=== PATIENT | female | born 1980 | race Caucasian/White ===

== ENCOUNTER → 2019-12-16 07:28 | Outpatient (CLI) | payer OTHER, SELFPAY ==
--- NOTE | ~2019-12-16 | US_ITS ---
US abdomen complete EXAMINATION: US Abdomen Complete INDICATION: Epigastric pain PROCEDURE: Realtime High Resolution abdomen ultrasound. COMPARISON: No prior studies for comparison FINDINGS: Gallbladder within normal limits. No gallstones, pericholecystic fluid, gallbladder wall t hickening or biliary dilatation. Common bile duct measures 2.3 mm. Liver echotexture within normal limits without focal mass. Pancreas within normal limits. Pancreati c tail is obscured by bowel gas. Spleen is unremarkeable. Renal echotexture is within normal limits bilaterally without hydronephrosis, contour deforming mass or renal stone. Right kidney measures 10.6 cm. Left kidney measures 9.1 cm. Visualized aspects of the aorta and IVC are within normal limits. Portal vein is patent. No sonograph ic Yeager's sign indicated by the technologist. IMPRESSION: 1: Normal abdominal ultrasound. Reviewed, dictated and finalized at location I.
== END ==
PROVIDERS: PCP Student in an Organized Health Care Education/Training Program; Visit Provider Student in an Organized Health Care Education/Training Program
DX: R10.13 Epigastric pain (principal)
CPT/HCPCS: 76700

== ENCOUNTER 2020-05-11 09:08 | Emergency (ER) | payer OTHER, SELFPAY ==
[2020-05-11 09:10] VITALS: BP 114/76; PULSE 64; RESP 16; TEMP 36.2; O2SAT 100
--- NOTE | 2020-05-11 10:18 | ED.BACK ---
HPI - Back Pain/Injury General Chief Complaint: Back Pain/Injury Stated Complaint: SCIATICA PAIN Time Seen by Provider: 05/11/20 09:24 Source: patient Mode of arrival: ambulatory Limitations: no limitations History of Present Illness HPI Narrative: Patient is a 39-year-old female who presents complaining of lower back pain x2 days. She reports a history of sciatica. She reports pain radiating down bilateral legs at this time. She denies urinary complaints. She denies loss of bowel or bladder control, she denies injury. She reports intermittently taking ibuprofen without relief, last use of ibuprofen was yesterday. MD elicited complaint: back pain Related Data Home Medications Medication Instructions Recorded Confirmed escitalopram oxalate mg 05/11/20 Allergies Allergy/AdvReac Type Severity Reaction Status Date / Time No Known Allergies Allergy Verified 05/11/20 09:53 Review of Systems Review of Systems: Narrative: CONSTITUTIONAL: Denies fever, chills, or sweats. EYES: Denies visual changes, redness, or discharge. ENT: Denies rhinorrhea, congestion, sore throat, or otalgia. CARDIOVASCULAR: Denies chest pain, palpitations, or edema. RESPIRATORY: Denies cough or dyspnea. GASTROINTESTINAL: Denies abdominal pain, nausea, vomiting, or diarrhea. GENITOURINARY: Denies dysuria or hematuria. SKIN: Denies rash or itching. MUSCULOSKELETAL: Reports lower back pain radiating to bilateral legs NEUROLOGIC: Denies headache, numbness, dizziness, or weakness. PSYCHIATRIC: Denies anxiety or depression. 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 HEAD: Normocephalic, atraumatic. EYES:No redness or drainage. ENT: Mucous membranes pink and moist. CHEST: No respiratory distress. HEART: Regular rate and rhythm. MUSCULOSKELETAL: No bony tenderness. EXTREMITIES: Normal range of motion. SKIN: Warm, dry, no rash. NEURO: No focal deficits. Alert and oriented x3. Gait steady. PSYCH: Normal affect. No signs of depression or anxiety. Course Reevaluation(s) Reevaluation #1: Patient reports decreased pain at this time. She reports she is ready for discharge. Date: 05/11/20 Time: 12:19 Vital Signs Vital signs: Vital Signs Temperature 36.2 C L 05/11/20 09:10 Pulse Rate 64 05/11/20 09:10 Respiratory Rate 16 05/11/20 09:10 Blood Pressure 114/76 05/11/20 09:10 Pulse Oximetry 100 05/11/20 09:10 Temperature 36.2 C L 05/11/20 09:10 Pulse Rate 64 05/11/20 09:10 Respiratory Rate 16 05/11/20 09:10 Blood Pressure 114/76 05/11/20 09:10 Pulse Oximetry 100 05/11/20 09:10 Reviewed MDM - Back Pain/Injury MDM Narrative Medical decision making narrative: Patient most likely has sciatica related to her symptoms and her history. Patient reports decreased pain after Toradol and Flexeril. Patient is ambulatory and ready for discharge at this time. Patient is stable for discharge to home with outpatient follow-up as needed. Differential Diagnosis Differential diagnosis: Likely lumbar radiculopathy, sciatica, strain of lumbar region and discitis Lab Data Attestation: I reviewed the patient's lab results. Labs: Lab Results 05/11/20 Range/Units 11:48 Urine Color Yellow (Yellow) Urine Appearance
[2020-05-11] MEDS: CYCLOBENZAPRINE HCL 10 MG TABLET PO (10:36)
[2020-05-11] MEDS: KETOROLAC (*BKC) 60 MG/2 ML VIAL IM (10:37)
[2020-05-11 12:05] LABS: Add Urine Microscopic? YES; Appearance Urine Clear (Clear); Bacteria Urine Trace /hpf; Bilirubin Urine Negative (Negative); Blood Urine 2+ (Negative); Color Urine Yellow (Yellow); Glucose Urine UA Negative (Negative); Ketones Urine Negative (Negative); Leukocyte Esterase Ur Negative LEU/UL (Negative); Mucus Urine Heavy /lpf; Nitrate Urine Negative (Negative); Protein Urine 1+ mg/dL (Negative); Specific Grav Ur 1.029 (1.001-1.035); Squamous Epithelial Cell Urine Few /hpf (Few); WBC Urine 0-3 /hpf
[2020-05-11 12:33] VITALS: BP 116/80; PULSE 63; RESP 18; O2SAT 98
== END 2020-05-11 12:40 | disposition home or self-care (01) ==
PROVIDERS: Emergency Provider Nurse Practitioner; PCP Student in an Organized Health Care Education/Training Program
DX: M54.42 Lumbago with sciatica, left side (principal); M54.41 Lumbago with sciatica, right side; M54.16 Radiculopathy, lumbar region; F32.9 Major depressive disorder, single episode, unspecified; F41.9 Anxiety disorder, unspecified
CPT/HCPCS: 81001; 81025; 96372; 99283; A9270; J1885

== ENCOUNTER → 2022-01-08 10:11 | Outpatient (CLI) | payer OTHER, SELFPAY ==
--- NOTE | ~2022-01-08 | CT_ITS ---
EXAMINATION: CT abdomen pelvis w con DATE: 01/08/2022 10:33 INDICATION: Epigastric abdominal pain, nausea TECHNIQUE: Computed tomography (CT) of the abdomen and pelvis was performed with 100 CC Omnipaque 350 intravenous contrast. Automated exposure control and iterative reconstruction technique were employe d. Exam dose: 557.49 mGy-cm total exam DLP. COMPARISON: 12/16/2019 complete abdominal ultrasound examination FINDINGS: The lung bases are clear of infiltrate or consolidation. Normal heart size. No pericardial or pleural effusion. The liver, gallbladder, bile ducts, spleen, pancreas, pancreatic duct, and adrenal glands and kidneys appear normal. Normal caliber of the abdominal aorta. No intraperitoneal or retroperitoneal or pelvic mass lesion or adenopathy or ascites. Normal appendix. There is a prominent of fecal material in the colon. No bowel obstruction, bowel wal l thickening, pneumatosis or intraperitoneal free air is detected. Retroverted uterus. 14 mm left ovarian cyst. The urinary bladder is unremarkable. Severe degenerative disc disease at L4-5. No suspicious osteolytic or osteoblastic lesions. IMPRESSION: Normal appendix Retroverted uterus 14 mm left ovarian cyst Severe degenerative disease at L4-5 Reviewed, dictated and finalized at Location A. Reviewed, dictated and finalized at location B.
== END ==
PROVIDERS: PCP Student in an Organized Health Care Education/Training Program; Visit Provider Student in an Organized Health Care Education/Training Program
DX: R10.13 Epigastric pain (principal); N83.202 Unspecified ovarian cyst, left side; M51.36 Other intervertebral disc degeneration, lumbar region
CPT/HCPCS: 74177; Q9967

== ENCOUNTER 2022-03-04 01:24 | Day surgery (SDC) | payer OTHER, SELFPAY ==
[2022-02-17 13:48] VITALS: BMI 24.5
[2022-03-04 12:00] VITALS: BP 110/73; PULSE 58; RESP 18; TEMP 36.3; O2SAT 98
[2022-03-04] MEDS: LACTATED RINGERS 1,000 ML 150 ML IV CONT (12:09)
--- NOTE | 2022-03-04 12:17 | WPDANESEPPF ---
Anes - Initial Pre Proc Eval Procedure: Operation Date: 03/04/22 13:15 Proposed Procedures p Esophagogastroduodenoscopy EGD - Grant Martinez MD Date/Time: 03/04/22 12:17 Surgeon: Grant Martinez MD Pre Op Diagnosis: nausea, epigastric pain Patient Data Age: 41 Gender: F Height: 1.7 m Weight: 70.9 kg Last Vital Signs Temp 97.3 F L 03/04/22 12:00 Pulse 58 L 03/04/22 12:00 Resp 18 03/04/22 12:00 BP 110/73 03/04/22 12:00 Pulse Ox 98 03/04/22 12:00 O2 Del Method Room Air 03/04/22 12:00 Allergies Allergy/AdvReac Type Severity Reaction Status Date / Time No Known Allergies Allergy Verified 03/04/22 11:59 Home Medications Medication Instructions Recorded Confirmed Type escitalopram oxalate 20 mg tablet 30 mg PO DAILY 05/11/20 02/17/22 History L.acidoph, paracasei,B. lactis 10 1 cell PO DAILY 01/29/22 02/17/22 History billion cell capsule (Digestive Advantage Advanced Probiotic) multivitamin 1 tablet PO DAILY 01/29/22 02/17/22 History omega 1-vwa-vwu-fish oil 100 2 cap PO BID 01/29/22 02/17/22 History mg-160 mg-1,000 mg capsule (Fish Oil) pantoprazole 40 mg tablet,delayed 40 mg PO QAM 01/29/22 02/17/22 History release cholecalciferol (vitamin D3) 125 125 mcg PO DAILY 02/17/22 02/17/22 History mcg (5,000 unit) tablet (Vitamin D3) Patient hx anesthesia problems: none Family hx anesthesia problems: none Results Review: All pre-operative results and documents have been reviewed as part of the pre-operative evaluation. 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 Informed Consent: The patient's anesthetic plan and its attendant risks and benefits were discussed with the patient/family/POA. Questions were solicited and answers provided to the satisfaction of the patient/family/POA.
--- NOTE | 2022-03-04 13:07 | PM.HPGS ---
History of Present Illness History of Present Illness Consent: Risks, benefits, and alternatives have been discussed and questions answered. Patient agrees to proceed with procedure. Chief complaint: nausea, epigastric pain Narrative: Pat Meneses is a 41 year old female with epigastric pain and nausea better since using protonix, never had egd Review of Systems Constitutional: Constitutional: Denies headache(s) and Denies weakness Eyes: Eyes: Denies blurry vision ENT: Reports Normal hearing present, Denies headache(s) and Denies neck pain Cardiovascular: Cardiovascular: Denies chest pain and Denies dyspnea Respiratory: Respiratory: Denies dyspnea Gastrointestinal: Gastrointestinal: Reports no additional gastrointestinal complaints Genitourinary: Genitourinary: Denies dysuria Musculoskeletal: Musculoskeletal: Denies neck pain Integumentary/Breasts: Skin/Breast: Denies dry skin Neurologic: Reports Normal hearing present, Denies headache(s) and Denies weakness Psychiatric: Psychiatric: Denies anxiety Endocrine: Endocrine: Denies change in body appearance Hematologic/Lymphatic: Hematologic/Lymphatic: Denies easy bleeding Allergic/Immunologic: Allergic/Immunologic: Denies urticaria [facility] Past Medical History Medical History (Updated 01/29/22 @ 09:37 by Grant Martinez MD) Anxiety Depression Epigastric pain Nausea Rash Sciatica Surgical History Surgical History H/O tubal ligation Family History Family History Other No significant family history Social History Social History Years smoked: 20 Smoking status: Former smoker Additional smoking assessment comments: smoked socially Alcohol intake: never Substance use: never Substance use type: does not use Living arrangements: other Additional living arrangements comments: with sp 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 lactis 10 1 cell PO DAILY 01/29/22 02/17/22 History billion cell capsule (Digestive Advantage Advanced Probiotic) multivitamin 1 tablet PO DAILY 01/29/22 02/17/22 History omega 1-mhd-izf-fish oil 100 2 cap PO BID 01/29/22 02/17/22 History mg-160 mg-1,000 mg capsule (Fish Oil) pantoprazole 40 mg tablet,delayed 40 mg PO QAM 01/29/22 02/17/22 History release cholecalciferol (vitamin D3) 125 125 mcg PO DAILY 02/17/22 02/17/22 History mcg (5,000 unit) tablet (Vitamin D3) Allergies Allergy/AdvReac Type Severity Reaction Status Date / Time No Known Allergies Allergy Verified 03/04/22 11:59 Vital Signs Vital Signs - 24 hr 03/04/22 12:00 Temperature 97.3 F L Pulse Rate 58 L Respiratory Rate 18 Blood Pressure 110/73 Pulse Oximetry 98 Oxygen Delivery Room Air Exam Const: General: comfortable and no acute distress HENMT: Face/Nose/Sinus: Normal nares present Eyes: General: appearance normal, both eyes and all related structures Neck: Neck: no JVD Resp: Auscultation: clear to auscultation bilaterally Cardio: Rate: regular rate Rhythm: regular rhythm GI: Inspection: non-distended GI Palp: Yes Soft to palpation Skin: General skin exam: normal color Neuro: General: gait normal Speech: normal speech Extrem: General: normal to inspection Psych: Mental Status: mental status grossly normal Assessment and Plan Assessment and plan (1) Epigastric pain: Code(s): R10.13 - Epigastric pain Status: Acute Assessment and Plan: egd with bx better with ppi (2) Nausea: Code(s): R11.0 - Nausea Status: Acute
[2022-03-04 13:24] VITALS: BP 106/66; PULSE 69; RESP 19; O2SAT 98
[2022-03-04 13:34] VITALS: BP 112/58; PULSE 67; RESP 16; O2SAT 99
[2022-03-04 13:44] VITALS: BP 110/79; PULSE 62; RESP 18; O2SAT 100
== END 2022-03-04 13:49 | disposition home or self-care (01) ==
PROVIDERS: PCP Student in an Organized Health Care Education/Training Program; Visit Provider Internal Medicine Gastroenterology
PROC: 0DJ08ZZ Inspection of Upper Intestinal Tract, Via Natural or Artificial Opening Endoscopic (ICD-10-PCS; CPT 43235; principal; 2022-03-04 13:15)
DX: K21.9 Gastro-esophageal reflux disease without esophagitis (principal); K29.70 Gastritis, unspecified, without bleeding; F41.9 Anxiety disorder, unspecified; F32.A Depression, unspecified; Z87.891 Personal history of nicotine dependence
CPT/HCPCS: 43239; 88305; J2405; J2704; J3010; J7120

== ENCOUNTER 2022-03-24 21:51 | Emergency (ER) | payer OTHER, SELFPAY ==
[2022-03-24 22:15] VITALS: BP 106/66; PULSE 100; RESP 14; TEMP 37.1; O2SAT 100
[2022-03-24 22:30] LABS: Basophils Percent Auto 0.2 % (0.2-1.2); Eosinophils Absolute Auto 0.1 K/mm3 (0-0.3); Eosinophils Percent Auto 0.7 % (0-4.4); Hematocrit 44.8 % (37.0-47.0); Hemoglobin 14.8 g/dL (12.0-15.0); Immature Granulocyte Absolute 0.07 K/mm3 (0.00-0.031); Immature Granulocyte Percent A 0.6 % (0-0.5); Lymphocytes Absolute Auto 0.36 K/mm3 (0.9-3.2); Mean Corpuscular Hemoglobin 30.9 pg (26-34); Mean Corpuscular Volume 93.5 fl (80-100); Mean Platelet Volume 10.4 fl (7.4-10.4); Monocytes Absolute Auto 0.5 K/mm3 (0.1-0.6); Monocytes Percent Auto 4.1 % (2.6-8.5); Neutrophils Absolute Auto 10.9 K/mm3 (1.3-6.7); Neutrophils Percent Auto 91.4 % (45.5-73.1); Platelet Count Result 242 k/mm3 (150-375); Red Blood Count 4.79 M/mm3 (4.2-5.4); Red Cell Distribution Width 12.8 % (11.5-14.5); White Blood Count 11.9 K/mm3 (4.5-10.0)
[2022-03-24 22:41] LABS: Alanine Aminotransferase 20 U/L (6-35); Albumin Level 4.6 g/dL (3.5-5.1); Alkaline Phosphatase 56 U/L (38-126); Anion Gap 15 mmol/L (8-16); Aspartate Amino Transferase 19 U/L (14-36); Bilirubin,Total 1.6 mg/dL (0.2-1.3); Blood Urea Nitrogen 23 mg/dL (7-17); Calcium 8.6 mg/dL (8.4-10.2); Carbon Dioxide 22 mmol/L (22-30); Chloride 104 mmol/L (98-107); Estimated CRCL calculation 71 ml/min; Estimated Glomerular Filt Rate > 60; Glucose 104 mg/dL (65-110); Lipase 154 U/L (23-300); Potassium 4.1 mmol/L (3.4-5.0); Sodium 141 mmol/L (137-145)
[2022-03-24 23:48] LABS: Appearance Urine Clear (Clear); Bilirubin Urine 1+ (Negative); Blood Urine Negative (Negative); Color Urine Yellow (Yellow); Glucose Urine UA Negative (Negative); Ketones Urine 4+ mg/dL (Negative); Leukocyte Esterase Ur Negative LEU/UL (Negative); Nitrate Urine Negative (Negative); Protein Urine Negative (Negative); Specific Grav Ur 1.015 (1.001-1.035)
[2022-03-24 23:51] LABS: Bacteria Urine Trace /hpf; Mucus Urine Rare /lpf; Squamous Epithelial Cell Urine Rare /hpf (Few); WBC Urine 0-3 /hpf
[2022-03-24 23:52] LABS: Add Urine Microscopic? YES
[2022-03-25] MEDS: diphenhydrAMINE HCl INJ 50 MG/ML VIAL 25 MG IV PUSH (00:21)
[2022-03-25] MEDS: SODIUM CHLORIDE 0.9% IV 1,000 ML 999 ML IV CONT ×2 (00:21→01:24)
[2022-03-25] MEDS: METOCLOPRAMIDE HCL INJ 10 MG/2 ML VIAL IV PUSH (00:22)
--- NOTE | 2022-03-25 00:55 | ED.NAVMDI ---
HPI - Nausea/Vomiting/Diarrhea General Chief complaint: Nausea/Vomiting/Diarrhea Stated complaint: N/V Time Seen by Provider: 03/24/22 23:27 History of Present Illness HPI Narrative: 41-year-old female history of IBS who is under the care of Dr. Xavier Young presents to the emergency room for evaluation of nausea vomiting and diarrhea since 4:00 today. Patient states that she has vomited 25 times nonbilious nonbloody emesis since the onset and has had 5 episodes of diarrhea. Patient took her son Rupali and 1 dose of an antidiarrheal prior to arrival. Patient states her called Dr. Xavier Young and was told to come straight to the emergency room for evaluation and treatment. Patient also admits to abdominal cramping. Denies fevers. Related Data Home Medications Medication Instructions Recorded Confirmed escitalopram oxalate 20 mg tablet 30 mg PO DAILY 05/11/20 02/17/22 L.acidoph, paracasei,B. lactis 10 1 cell PO DAILY 01/29/22 02/17/22 billion cell capsule (Digestive Advantage Advanced Probiotic) multivitamin 1 tablet PO DAILY 01/29/22 02/17/22 omega 0-trq-tko-fish oil 100 2 cap PO BID 01/29/22 02/17/22 mg-160 mg-1,000 mg capsule (Fish Oil) pantoprazole 40 mg tablet,delayed 40 mg PO QAM 01/29/22 02/17/22 release cholecalciferol (vitamin D3) 125 125 mcg PO DAILY 02/17/22 02/17/22 mcg (5,000 unit) tablet (Vitamin D3) Allergies Allergy/AdvReac Type Severity Reaction Status Date / Time No Known Allergies Allergy Verified 03/04/22 11:59 Review of Systems Review of Systems: CONSTITUTIONAL: Denies fever, chills, or sweats. EYES: Denies visual changes, redness, or discharge. ENT: Denies rhinorrhea, congestion, sore throat, or otalgia. CARDIOVASCULAR: Denies chest pain, palpitations, or edema. RESPIRATORY: Denies cough or dyspnea. GASTROINTESTINAL: Reports abdominal cramping, nausea, vomiting and diarrhea GENITOURINARY: Denies dysuria or hematuria. SKIN: Denies rash or itching. MUSCULOSKELETAL: Denies back pain, joint pain, or myalgia. NEUROLOGIC: Denies headache, numbness, dizziness, or weakness. PSYCHIATRIC: Denies anxiety or depression. 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 HEAD: Normocephalic, atraumatic. EYES: Conjunctivae normal, PERRLA and EOMI. CHEST: Clear to auscultation. No respiratory distress. No wheezes rales or rhonchi. HEART: Regular rate and rhythm. No murmur heard. Normal peripheral pulses. ABDOMEN: Soft, nontender, nondistended, normal active bowel sounds. BACK: No CVA tenderness EXTREMITIES: Normal range of motion. No edema. No clubbing or cyanosis SKIN: Warm, dry, no rash. No noted wounds NEURO: No focal deficits. Alert and oriented x3. MAEW. CN's II-XI intact bilaterally, normal gait PSYCH: Cooperative. Normal mood and affect. Course Vital Signs Vital signs: Vital Signs Temperature 37.1 C 03/24/22 22:15 Pulse Rate 100 03/24/22 22:15 Respiratory Rate 14 03/24/22 22:15 Blood Pressure 106/66 03/24/22 22:15 Pulse Oximetry 100 03/24/22 22:15 Oxygen Delivery Room Air 03/24/22 22:15 Temperature 37.1 C
[2022-03-25 01:06] LABS: Urine Pregnancy Test Negative
[2022-03-25 01:07] LABS: Pregnancy On Board Control Positive
[2022-03-25 01:49] LABS: Lactic Acid Reflex 0.8 mmol/L (0.7-2.0)
== END 2022-03-25 02:10 | disposition home or self-care (01) ==
PROVIDERS: Emergency Medicine; Emergency Provider Nurse Practitioner Family; PCP Student in an Organized Health Care Education/Training Program
DX: K52.9 Noninfective gastroenteritis and colitis, unspecified (principal); F41.9 Anxiety disorder, unspecified; F32.A Depression, unspecified; Z87.891 Personal history of nicotine dependence
CPT/HCPCS: 36415; 80053; 81001; 81025; 83605; 83690; 85025; 96361; 96374; 96375; 99284; J1200; J2765; J7030

== ENCOUNTER 2022-04-09 09:47 | Outpatient (CLI) | payer OTHER, SELFPAY ==
--- NOTE | ~2022-04-09 | NM_ITS ---
EXAM: NM gastric emptying study DATE: 04/09/2022 14:16 INDICATION: Nausea. TECHNIQUE: A gastric emptying study was performed using the methodology of Etta PEMBERTON, et al. J Nucl Med 2007; 48:568-572. The patient was given a meal consisting of 2 scrambled eggs labeled with 1.010 mCi Tc-99m sulfur colloid, 2 slices of toast, two packages of jam, and approximately 120 mL of water . Simultaneous anterior and posterior 1-min images of the abdomen were obtained with the patient supi ne at multiple time points over a total period of 4 hours. The geometric mean of anterior and posteri or views was determined, and the percentage retention was calculated for each time point. COMPARISON: CT abdomen and pelvis 01/08/2022 FINDINGS: Gastric retention of the radiotracer-labeled meal was 36%, 23%, and 2% at the 1-hour, 2-ho ur, and 4-hour time points, respectively. With this technique, apparent rapid gastric emptying is sug gested by <30% gastric retention at 1 hour. Delayed gastric emptying is defined by gastric retention of >90% at 1 hour, >60% retention at 2 hours, or >10% retention at 4 hours. IMPRESSION: 1. Normal gastric emptying. Reviewed, dictated and finalized at location A. RIDE ATTENDANT IMPRESSION: 1. Normal gastric emptying.
== END 2022-04-09 09:48 | disposition home or self-care (01) ==
PROVIDERS: PCP Student in an Organized Health Care Education/Training Program; Visit Provider Internal Medicine Gastroenterology
DX: R11.0 Nausea (principal)
CPT/HCPCS: 78264; A9541

== ENCOUNTER 2022-08-08 08:21 | Emergency (ER) | payer OTHER, SELFPAY ==
[2022-08-08] VITALS (13 sets, daily range): BP systolic 102–134; BP diastolic 63–78; PULSE 61–72; RESP 16–23; O2SAT 98–100
--- NOTE | ~2022-08-08 | CT_ITS ---
EXAMINATION: CT abdomen pelvis w con DATE: 08/08/2022 10:24 INDICATION: Abdominal pain. TECHNIQUE: Computed tomography (CT) of the abdomen and pelvis was performed with 100 mL Omnipaque 350 intravenous contrast. Automated exposure control and iterative reconstruction technique were employe d. The dose-length product was 371.42 mGy-cm. COMPARISON: CT abdomen and pelvis 01/08/2022 FINDINGS: The visualized portions of the lung bases demonstrate mild atelectasis. No pleural effusion . The heart size is normal. No pericardial effusion. The liver, gallbladder, spleen, pancreas, adrena l glands, and kidneys are normal. There is a left tubal ligation clip in expected position. The right tubal ligation clip is dislodged, which is chronic. The appendix is normal. There are no dilated loo ps of bowel. There are no pathologically enlarged lymph nodes. There is physiologic fluid in the pelv is. There is severe degenerative disc disease at L4-L5. IMPRESSION: 1. No etiology for the patient's symptoms. Reviewed, dictated and finalized at location A.
--- NOTE | 2022-08-08 08:38 | ED.ABDPAIN ---
HPI - Abdominal Pain General Chief Complaint: Abdominal Pain Stated Complaint: abd pain Time Seen by Provider: 08/08/22 08:23 Source: RN notes reviewed History of Present Illness HPI narrative: Patient presents emergency department from home for abdominal pain. Patient states that she has been having abdominal pain in the epigastric region for the past 1 week. The pain is described as burning in nature and is at times sharp and stabbing and will radiate in the right upper quadrant. States that she has had no fevers or chills she denies any nausea vomiting or diarrhea. Patient states that she does have a history of chronic abdominal pain since 2019 and is followed by Dr[address] Hannah Park. States she has been diagnosed with gastritis and is on Protonix and Bentyl daily which she has been taking. Related Data Home Medications Medication Instructions Recorded Confirmed escitalopram oxalate 20 mg tablet 30 mg PO DAILY 05/11/20 02/17/22 L.acidoph, paracasei,B. lactis 10 1 cell PO DAILY 01/29/22 02/17/22 billion cell capsule (Digestive Advantage Advanced Probiotic) multivitamin 1 tablet PO DAILY 01/29/22 02/17/22 omega 1-itr-wll-fish oil 100 2 cap PO BID 01/29/22 02/17/22 mg-160 mg-1,000 mg capsule (Fish Oil) cholecalciferol (vitamin D3) 125 125 mcg PO DAILY 02/17/22 02/17/22 mcg (5,000 unit) tablet (Vitamin D3) ashwhitneydha root extract 500 mg mg PO 08/08/22 capsule s-adenosylmethionine 400 mg tablet 400 mg PO DAILY 08/08/22 (Galdino-E) Allergies Allergy/AdvReac Type Severity Reaction Status Date / Time No Known Allergies Allergy Verified 08/08/22 09:57 Review of Systems Review of Systems: Gen.: Denies fevers or chills ENT: Denies congestion Respiratory: Denies shortness of breath or cough CV: Denies chest pain or palpitations GI: See HPI denies burning, urgency, frequency or hematuria Musculoskeletal: Denies back pain or muscle pain Neuro: Denies numbness, tingling, weakness or focal weakness Skin: Denies rash Except as documented, all other systems reviewed and negative PMFSH Past Medical History Medical History Anxiety Depression Epigastric pain Nausea Rash Sciatica Surgical History Surgical History H/O tubal ligation Family History Family History Other No significant family history Social History Social History Years smoked: 20 Smoking status: Former smoker Additional smoking assessment comments: smoked socially Alcohol intake: never Substance use: never Substance use type: does not use Living arrangements: other Additional living arrangements comments: with sp Occupation/Education: occupation 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 CARDIOVASCULAR: Regular rate and rhythm without murmurs rubs or gallops. ABDOMINAL: Soft, nondistended, tender palpation epigastric, right upper quadrant and left upper quadrant no tenderness in the right lower quadrant left lower quadrant no rebound or guarding MUSCULOSKELETAl: Moves all extremities. No clubbing, cyanosis or edema. NEURO: Awake and alert. Following commands, speech normal, no focal deficits SKIN:: Warm, dry. No rashes lesions or abrasions PSYCHIATRIC: Normal affect/mood, Course Course Emergency Course: Patient states that they are feeling much better at this time. States abdominal pain has resolved.Discussed with patient results of workup and diagnosis. Discussed need for follow-up with primary care physician, reasons to return to the emergency departme
[2022-08-08 08:55] LABS: Basophils Absolute Auto 0.1 K/mm3 (0.0-0.1); Eosinophils Absolute Auto 0.3 K/mm3 (0-0.3); Eosinophils Percent Auto 4.8 % (0-4.4); Hematocrit 41.9 % (37.0-47.0); Hemoglobin 13.8 g/dL (12.0-15.0); Immature Granulocyte Absolute 0.02 K/mm3 (0.00-0.031); Immature Granulocyte Percent A 0.3 % (0-0.5); Lymphocytes Absolute Auto 2.37 K/mm3 (0.9-3.2); Lymphocytes Percent Auto 33.6 % (18.3-44.2); Mean Corpuscular HGB Conc 32.9 g/dl (32-36); Mean Corpuscular Hemoglobin 30.7 pg (26-34); Mean Corpuscular Volume 93.3 fl (80-100); Mean Platelet Volume 10.9 fl (7.4-10.4); Monocytes Absolute Auto 0.6 K/mm3 (0.1-0.6); Monocytes Percent Auto 7.8 % (2.6-8.5); Neutrophils Absolute Auto 3.7 K/mm3 (1.3-6.7); Neutrophils Percent Auto 52.5 % (45.5-73.1); Platelet Count Result 227 k/mm3 (150-375); Red Blood Count 4.49 M/mm3 (4.2-5.4); Red Cell Distribution Width 12.8 % (11.5-14.5); White Blood Count 7.1 K/mm3 (4.5-10.0)
[2022-08-08 09:08] LABS: Alanine Aminotransferase 14 U/L (6-35); Albumin Level 3.8 g/dL (3.5-5.1); Alkaline Phosphatase 59 U/L (38-126); Anion Gap 3 mmol/L (8-16); Aspartate Amino Transferase 16 U/L (14-36); Bilirubin,Total 1.1 mg/dL (0.2-1.3); Blood Urea Nitrogen 7 mg/dL (7-17); Calcium 8.2 mg/dL (8.4-10.2); Carbon Dioxide 31 mmol/L (22-30); Chloride 104 mmol/L (98-107); Estimated CRCL calculation 79 ml/min; Estimated Glomerular Filt Rate > 60; Glucose 80 mg/dL (65-110); Lipase 51 U/L (23-300); Potassium 3.7 mmol/L (3.4-5.0); Sodium 138 mmol/L (137-145)
[2022-08-08 09:14] LABS: Appearance Urine Clear (Clear); Bilirubin Urine Negative (Negative); Blood Urine Negative (Negative); Color Urine Yellow (Yellow); Glucose Urine UA Negative (Negative); Ketones Urine Negative (Negative); Leukocyte Esterase Ur Negative LEU/UL (Negative); Nitrate Urine Negative (Negative); Protein Urine Negative (Negative); Specific Grav Ur 1.007 (1.001-1.035); Urobilinogen Urine 0.2 mg/dL (<2.0)
[2022-08-08 09:22] LABS: Add Urine Microscopic? NO
== END 2022-08-08 11:50 | disposition home or self-care (01) ==
PROVIDERS: Emergency Provider Emergency Medicine; PCP Student in an Organized Health Care Education/Training Program
DX: R10.13 Epigastric pain (principal); Z87.891 Personal history of nicotine dependence
CPT/HCPCS: 36415; 74177; 80053; 81003; 81025; 83690; 85025; 99284; A9270; Q9967

== ENCOUNTER 2024-02-05 15:05 | Emergency (ER) | payer OTHER, SELFPAY ==
--- NOTE | ~2024-02-05 | XR_ITS ---
XR abdomen obstructive series Ordering provider: Homero Kovacs MD History: . lower ab pain . Comparison: FINDINGS: BOWEL: Fecal material is loaded in the colon which may indicate post ration. Nonobstructive bowel gas pattern. ORGANOMEGALY: None. SIGNIFICANT PATHOLOGIC CALCIFICATIONS: Calcific area is projected over the last segment of the coccyx which may be a stone or in the fecal material. Follow-up advised. OTHER: No free air is seen under the diaphragm. IMPRESSION: NO ACUTE ABDOMINAL FINDINGS. Possible calcific shadow in the area of the urinary bladder. Follow-up advised. Constipation. Reviewed, dictated and finalized at location A.
--- NOTE | ~2024-02-05 | XR_ITS ---
XR chest 2V Ordering provider: Homero Kovacs MD History: 43 years Female with . SOB . Comparison: None. FINDINGS: MEDIASTINUM: The cardiac silhouette is not enlarged. LUNGS: No infiltrates, effusions or pneumothorax. OTHER: No free air under the diaphragm. IMPRESSION: No acute cardiopulmonary pathology. Reviewed, dictated and finalized at location A.
[2024-02-05 15:10] VITALS: BP 105/51; PULSE 73; RESP 18; TEMP 36.4; O2SAT 100
[2024-02-05 16:10] VITALS: BP 118/55; PULSE 76; RESP 16; TEMP 36.8; O2SAT 100
--- NOTE | 2024-02-05 16:18 | ED.GENADULT ---
HPI - General Adult General Chief complaint: Upper Respiratory Infection Stated complaint: LONG COVID FLARE Time Seen by Provider: 02/05/24 16:02 History of Present Illness HPI narrative: 43-year-old female presenting to the emergency department for evaluation for concern of having a long COVID flare up. Patient states she initially had COVID in 2019 then then again on 2021 Patient did have sinus surgery on 01/24 . Patient describes having runny nose, body aches fever and GI symptoms. Patient reports having some lower abdominal pain which she also attributes to her IBS C. Patient has been taking Vicodin and Bentyl for pain control. Related Data Home Medications Medication Instructions Recorded Confirmed escitalopram oxalate 20 mg tablet 30 mg PO DAILY 05/11/20 02/17/22 L.acidoph, paracasei,B. lactis 10 1 cell PO DAILY 01/29/22 02/17/22 billion cell capsule (Digestive Advantage Advanced Probiotic) multivitamin 1 tablet PO DAILY 01/29/22 02/17/22 omega 3-foy-mpz-fish oil 100 2 cap PO BID 01/29/22 02/17/22 mg-160 mg-1,000 mg capsule (Fish Oil) cholecalciferol (vitamin D3) 125 125 mcg PO DAILY 02/17/22 02/17/22 mcg (5,000 unit) tablet (Vitamin D3) ashwagandha root extract 500 mg mg PO 08/08/22 capsule s-adenosylmethionine 400 mg tablet 400 mg PO DAILY 08/08/22 (KEELY-e) Allergies Allergy/AdvReac Type Severity Reaction Status Date / Time No Known Allergies Allergy Verified 08/08/22 09:57 Review of Systems Review of Systems: All systems reviewed & are unremarkable except as noted in HPI and below PMFSH Past Medical History Medical History Anxiety Depression Epigastric pain Nausea Rash Sciatica Surgical History Surgical History H/O tubal ligation Family History Family History Other No significant family history Social History Social History Years smoked: 20 Smoking status: Former smoker Additional smoking assessment comments: smoked socially Alcohol intake: never Substance use: never Substance use type: does not use Living arrangements: other Additional living arrangements comments: with sp Occupation/Education: occupation 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 HEAD: normocephalic, atraumatic. EYES: PERRLA/EOMI, conjunctivae clear. NOSE: Normal no drainage EARS:TMS clear with good light reflex. THROAT: Pharynx clear, no exudate. NECK: Supple. No adenopathy, no masses. RESPIRATORY: Airway patent, respirations nonlabored. Clear to auscultation bilaterally, no rales, rhonchi, wheezing. CARDIOVASCULAR: Regular rate and rhythm without murmurs rubs or gallops. ABDOMINAL: Soft, nontender, nondistended, normal bowel sounds MUSCULOSKELETAL: Moves all extremities. Strength/ROM intact, No edema, No calf tenderness. NEURO: Alert. Cranial nerves II through XII intact. Grossly intact SKIN: Warm, dry. Normal Color Course Vital Signs Vital signs: Vital Signs Temperature 97.6 F 02/05/24 15:10 Pulse Rate 73 02/05/24 15:10 Respiratory Rate 18 02/05/24 15:10 Blood Pressure 105/51 L 02/05/24 15:10 Pulse Oximetry 100 02/05/24 15:10 Oxygen Delivery Room Air 02/05/24 15:10 Temperature 98.2 F 02/05/24 16:10 Pulse Rate 76 02/05/24 16:10 Respiratory Rate 16 02/05/24 16:10 Blood Pressure 118/55 L 02/05/24 16:10 Pulse Oximetry 100 02/05/24 16:10 Oxygen Delivery Room Air 02/05/24 16:05 Medical Decision Making MDM Narrative Medical decision making narrative: 43-year-old female presents emergency department for evaluation for abdominal cramping and viral symptoms. Patient is afebrile with no leukocytosis and a s
[2024-02-05] MEDS: SODIUM CHLORIDE 0.9% IV 1,000 ML 999 ML IV CONT (16:52)
[2024-02-05 16:57] LABS: Basophils Percent Auto 0.7 % (0.2-1.2); Eosinophils Absolute Auto 0.2 K/mm3 (0-0.3); Eosinophils Percent Auto 2.7 % (0-4.4); Hematocrit 43.5 % (37.0-47.0); Hemoglobin 14.3 g/dL (12.0-15.0); Immature Granulocyte Absolute 0.02 K/mm3 (0.00-0.031); Immature Granulocyte Percent A 0.4 % (0-0.5); Lymphocytes Absolute Auto 1.66 K/mm3 (0.9-3.2); Lymphocytes Percent Auto 29.9 % (18.3-44.2); Mean Corpuscular HGB Conc 32.9 g/dl (32-36); Mean Corpuscular Hemoglobin 31.6 pg (26-34); Mean Platelet Volume 10.4 fl (7.4-10.4); Monocytes Absolute Auto 0.6 K/mm3 (0.1-0.6); Monocytes Percent Auto 10.1 % (2.6-8.5); Neutrophils Absolute Auto 3.1 K/mm3 (1.3-6.7); Neutrophils Percent Auto 56.2 % (45.5-73.1); Platelet Count Result 292 k/mm3 (150-375); Red Blood Count 4.53 M/mm3 (4.2-5.4); Red Cell Distribution Width 13.4 % (11.5-14.5); White Blood Count 5.6 K/mm3 (4.5-10.0)
[2024-02-05 17:03] LABS: Add Urine Microscopic? YES; Appearance Urine Clear (Clear); Bacteria Urine Rare /hpf; Bilirubin Urine Negative (Negative); Blood Urine Negative (Negative); Color Urine Yellow (Yellow); Glucose Urine UA Negative (Negative); Ketones Urine Negative (Negative); Leukocyte Esterase Ur Trace LEU/UL (Negative); Nitrate Urine Negative (Negative); Non Pathogenic Casts 0-2; Protein Urine Negative (Negative); RBC Urine 0-2 /hpf (0-2); Specific Grav Ur 1.019 (1.001-1.035); Squamous Epithelial Cell Urine None Seen /hpf (Few); Urobilinogen Urine 0.2 mg/dL (<2.0); WBC Urine 0-5 /hpf (0-3)
[2024-02-05 17:06] LABS: Lactic Acid Reflex 0.8 mmol/L (0.7-2.0)
[2024-02-05 17:07] LABS: Alanine Aminotransferase 31 U/L (6-35); Albumin Level 4.1 g/dL (3.5-5.1); Alkaline Phosphatase 77 U/L (38-126); Anion Gap 5 mmol/L (4-12); Aspartate Amino Transferase 29 U/L (14-36); Bilirubin,Total 0.6 mg/dL (0.2-1.3); Blood Urea Nitrogen 25 mg/dL (7-17); Calcium 8.5 mg/dL (8.4-10.2); Carbon Dioxide 31 mmol/L (22-30); Chloride 101 mmol/L (98-107); Estimated CRCL calculation 88 ml/min; Estimated Glomerular Filt Rate > 60; Glucose 91 mg/dL (65-110); Lipase 98 U/L (23-300); Potassium 4.2 mmol/L (3.4-5.0); Prothrombin Time 13.7 Seconds (11.1-14.7); Sodium 137 mmol/L (137-145)
[2024-02-05 17:08] LABS: Partial Thromboplastin Time 39.6 Seconds (22.3-36.8)
[2024-02-05 17:35] LABS: Influenza A QL RT-PCR Negative (Negative); Influenza B QL RT-PCR Negative (Negative); RSV RNA, RT-PCR Negative (Negative); SARS-CoV-2 RNA PCR Negative (Negative)
[2024-02-05] MEDS: KETOROLAC 15 MG/ML VIAL (*BKC) IV PUSH (19:20)
[2024-02-07 14:27] LABS: BEDSIDEPREGUCG Negative (Negative)
== END 2024-02-05 19:21 | disposition home or self-care (01) ==
PROVIDERS: Emergency Provider Emergency Medicine; PCP Student in an Organized Health Care Education/Training Program
DX: B34.9 Viral infection, unspecified (principal); R10.30 Lower abdominal pain, unspecified; Z20.822 Contact with and (suspected) exposure to COVID-19; K58.1 Irritable bowel syndrome with constipation; F41.9 Anxiety disorder, unspecified; F32.A Depression, unspecified; Z86.16 Personal history of COVID-19; Z87.891 Personal history of nicotine dependence; Z79.899 Other long term (current) drug therapy
CPT/HCPCS: 36415; 71046; 74019; 80053; 81001; 81025; 83605; 83690; 85025; 85610; 85730; 87637; 96361; 96374; 99284; J1885; J7030

== ENCOUNTER 2024-02-28 12:42 | Emergency (ER) | payer OTHER, SELFPAY ==
[2024-02-28 12:49] VITALS: BP 119/87; PULSE 82; RESP 20; TEMP 36.4; O2SAT 100
[2024-02-28 13:25] VITALS: BP 110/50; PULSE 66; RESP 14; TEMP 36.6; O2SAT 100
[2024-02-28 13:26] VITALS: BP 110/50; BP 116/70; PULSE 66; PULSE 79
[2024-02-28 13:27] VITALS: BP 111/69; PULSE 90
[2024-02-28 13:40] LABS: BEDSIDEPREGUCG Negative (Negative)
[2024-02-28 13:46] LABS: Basophils Percent Auto 0.5 % (0.2-1.2); Eosinophils Absolute Auto 0.2 K/mm3 (0-0.3); Eosinophils Percent Auto 2.6 % (0-4.4); Hematocrit 43.5 % (37.0-47.0); Hemoglobin 14.8 g/dL (12.0-15.0); Immature Granulocyte Absolute 0.02 K/mm3 (0.00-0.031); Immature Granulocyte Percent A 0.3 % (0-0.5); Lymphocytes Absolute Auto 1.03 K/mm3 (0.9-3.2); Lymphocytes Percent Auto 13.5 % (18.3-44.2); Mean Platelet Volume 10.2 fl (7.4-10.4); Monocytes Absolute Auto 0.6 K/mm3 (0.1-0.6); Monocytes Percent Auto 8.1 % (2.6-8.5); Neutrophils Absolute Auto 5.7 K/mm3 (1.3-6.7); Platelet Count Result 306 k/mm3 (150-375); Red Blood Count 4.63 M/mm3 (4.2-5.4); Red Cell Distribution Width 13.2 % (11.5-14.5); White Blood Count 7.6 K/mm3 (4.5-10.0)
[2024-02-28 13:50] LABS: Add Urine Microscopic? YES; Appearance Urine Cloudy (Clear); Bacteria Urine None Seen /hpf; Bilirubin Urine Negative (Negative); Blood Urine 3+ (Negative); Color Urine Yellow (Yellow); Glucose Urine UA Negative (Negative); Ketones Urine Trace mg/dL (Negative); Leukocyte Esterase Ur 1+ LEU/UL (Negative); Nitrate Urine Negative (Negative); Non Pathogenic Casts 0-2; Protein Urine Trace mg/dL (Negative); RBC Urine 21-50 /hpf (0-2); Specific Grav Ur 1.026 (1.001-1.035); Squamous Epithelial Cell Urine Occasional /hpf (Few)
[2024-02-28 13:54] LABS: Alanine Aminotransferase 20 U/L (6-35); Albumin Level 4.5 g/dL (3.5-5.1); Alkaline Phosphatase 84 U/L (38-126); Anion Gap 9 mmol/L (4-12); Aspartate Amino Transferase 28 U/L (14-36); Bilirubin,Total 1.3 mg/dL (0.2-1.3); Blood Urea Nitrogen 20 mg/dL (7-17); Calcium 9.2 mg/dL (8.4-10.2); Carbon Dioxide 27 mmol/L (22-30); Chloride 103 mmol/L (98-107); Estimated CRCL calculation 88 ml/min; Estimated Glomerular Filt Rate > 60; Glucose 111 mg/dL (65-110); Lipase 127 U/L (23-300); Potassium 3.5 mmol/L (3.4-5.0); Sodium 139 mmol/L (137-145)
[2024-02-28] MEDS: BELLADONNA ALK/PHENOB ELIX 10 ML, MAG HYDROX/ALUMINUM HYD/SIMETH 30 ML, LIDOCAINE HCL 2... PO (14:23)
--- NOTE | 2024-02-28 15:18 | ED.GENADULT ---
HPI - General Adult General Chief complaint: Unspecified Stated complaint: long COVID flare up Time Seen by Provider: 02/28/24 13:04 History of Present Illness HPI narrative: Patient is a 43-year-old female who presents ER with concerns for flare of long COVID. Epigastric pain burning in nature. Just began today is causing her to feel bloated. No improvement with simethicone or Bentyl. Denies fevers or chills or sweats. No diarrhea. No recent diagnosis of COVID. Patient is also currently on her menstrual cycle. Related Data Home Medications Medication Instructions Recorded Confirmed escitalopram oxalate 20 mg tablet 30 mg PO DAILY 05/11/20 02/17/22 L.acidoph, paracasei,B. lactis 10 1 cell PO DAILY 01/29/22 02/17/22 billion cell capsule (Digestive Advantage Advanced Probiotic) multivitamin 1 tablet PO DAILY 01/29/22 02/17/22 omega 1-rxx-mpq-fish oil 100 2 cap PO BID 01/29/22 02/17/22 mg-160 mg-1,000 mg capsule (Fish Oil) cholecalciferol (vitamin D3) 125 125 mcg PO DAILY 02/17/22 02/17/22 mcg (5,000 unit) tablet (Vitamin D3) ashwagandha root extract 500 mg mg PO 08/08/22 capsule s-adenosylmethionine 400 mg tablet 400 mg PO DAILY 08/08/22 (KEELY-e) Allergies Allergy/AdvReac Type Severity Reaction Status Date / Time cefdinir AdvReac Nausea Verified 02/28/24 12:43 Review of Systems Review of Systems: All systems reviewed & are unremarkable except as noted in HPI and below Constitutional: Constitutional: Reports no additional constitutional complaints Cardiovascular: Cardiovascular: Reports no additional cardiovascular complaints Respiratory: Respiratory: Reports no additional respiratory complaints Gastrointestinal: Gastrointestinal: Reports no additional gastrointestinal complaints [facility] Past Medical History Medical History Anxiety Depression Epigastric pain Nausea Rash Sciatica Surgical History Surgical History H/O tubal ligation Family History Family History Other No significant family history Social History Social History Years smoked: 20 Smoking status: Former smoker Additional smoking assessment comments: smoked socially Alcohol intake: never Substance use: never Substance use type: does not use Living arrangements: other Additional living arrangements comments: with sp Occupation/Education: occupation Additional occupation/education comments: [employer] Exam Narrative: GENERAL: Well-appearing, well-nourished, and in no acute distress. HEAD: Normocephalic, atraumatic. ENT: Mucous membranes moist. CHEST: Clear to auscultation. No respiratory distress. HEART: Regular rate and rhythm. Normal peripheral pulses. ABDOMEN: Soft, nontender, nondistended. EXTREMITIES: Normal range of motion. No edema. SKIN: Warm, dry, no rash. NEURO: Alert and oriented x3. PSYCH: Normal mood and affect. Course Course Emergency Course: Patient resting comfortably. Symptoms improved with GI cocktail. Discharge home with acid suppression medication. Recommend follow-up with GI if symptoms persist. Gastritis versus IBS. Vital Signs Vital signs: Vital Signs Temperature 97.6 F 02/28/24 12:49 Pulse Rate 82 02/28/24 12:49 Respiratory Rate 20 02/28/24 12:49 Blood Pressure 119/87 02/28/24 12:49 Pulse Oximetry 100 02/28/24 12:49 Oxygen Delivery Room Air 02/28/24 12:49 Temperature 98 F 02/28/24 13:25 Pulse Rate 69 02/28/24 17:30 Respiratory Rate 13 02/28/24 17:30 Blood Pressure 112/60 02/28/24 17:30 Pulse Oximetry 100 02/28/24 17:30 Oxygen Delivery Room Air 02/28/24 12:49 Medical Decision Making Vital Signs Vital Signs: Vital Signs Temperature 97.6 F 02/28/24 12:49 Puls
[2024-02-28 17:30] VITALS: BP 112/60; PULSE 69; RESP 13; O2SAT 100
== END 2024-02-28 17:47 | disposition home or self-care (01) ==
PROVIDERS: Emergency Medicine; Emergency Provider Emergency Medicine; PCP Student in an Organized Health Care Education/Training Program
DX: K52.9 Noninfective gastroenteritis and colitis, unspecified (principal); F41.9 Anxiety disorder, unspecified; F32.A Depression, unspecified
CPT/HCPCS: 36415; 80053; 81001; 81025; 83690; 85025; 87086; 99283; A9270

== ENCOUNTER 2024-05-19 01:10 | Day surgery (SDC) | payer OTHER, SELFPAY ==
[2024-05-02 10:58] VITALS: BMI 22.7
[2024-05-19 10:39] VITALS: BP 110/68; PULSE 71; RESP 16; TEMP 36.2; O2SAT 99
[2024-05-19] MEDS: LACTATED RINGERS 1,000 ML 150 ML IV CONT (10:49)
--- NOTE | 2024-05-19 11:19 | P.PNAN_ITS ---
Anes - Initial Pre Proc Eval Procedure: Operation Date: 05/19/24 10:30 Proposed Procedures p Esophagogastroduodenoscopy - Regulo Moreno MD Date/Time: 05/19/24 11:19 Surgeon: Regulo Moreno MD Pre Op Diagnosis: epigastric pain, nausea, gastritis w/o bleeding Patient Data Age: 43 Gender: F Height: 1.7 m Weight: 69.8 kg Last Vital Signs Temp 97.1 F L 05/19/24 10:39 Pulse 71 05/19/24 10:39 Resp 16 05/19/24 10:39 BP 110/68 05/19/24 10:39 Pulse Ox 99 05/19/24 10:39 O2 Del Method Room Air 05/19/24 10:39 Allergies Allergy/AdvReac Type Severity Reaction Status Date / Time cefdinir AdvReac Nausea Verified 05/19/24 10:37 Home Medications ?Medication ?Instructions ?Recorded ?Confirmed ?Type escitalopram oxalate 20 mg tablet 30 mg PO DAILY 05/11/20 05/02/24 History multivitamin 1 tablet PO DAILY 01/29/22 05/02/24 History cholecalciferol (vitamin D3) 125 125 mcg PO DAILY 02/17/22 05/02/24 History mcg (5,000 unit) tablet (Vitamin D3) pantoprazole 40 mg tablet,delayed 40 mg PO QAM #30 tabs 03/20/24 05/02/24 Rx release cetirizine 10 mg tablet (24Hour 10 mg PO DAILY 05/02/24 05/02/24 History Allergy) collagen,hydrolysate 500 mg-biotin 1 cap PO DAILY 05/02/24 05/02/24 History 800 mcg-ascorbic acid 50 mg capsule (Collagen 1500 Plus C) Patient hx anesthesia problems: none Family hx anesthesia problems: none Results Review: All pre-operative results and documents have been reviewed as part of the pre- operative evaluation. 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 Informed Consent: The patient's anesthetic plan and its attendant risks and benefits were discussed with the patient/family/POA. Questions were solicited and answers provided to the satisfaction of the patient/family/POA.
--- NOTE | 2024-05-19 12:02 | PM.IMHP ---
H&P: HPI History of Present Illness Date/Time: 05/19/24 12:02 Chief Complaint: Dyspepsia Narrative: this patient has recurrent epigastric discomfort, occasional heartburn and frequent abdominal bloating. She was scoped approximately 2 years ago, showing moderate gastritis but no ulcers or neoplasms. she is here for EGD. Review of Systems Review of Systems: All systems reviewed & are unremarkable except as noted in HPI and below PMFSH Past Medical History Medical History Anxiety Depression Epigastric pain Nausea Rash Sciatica Surgical History Surgical History H/O tubal ligation Family History Family History Other No significant family history Social History Social History Years smoked: 20 Smoking status: Former smoker Additional smoking assessment comments: social smoker Alcohol intake: never Substance use: never Substance use type: does not use Living arrangements: with family Additional living arrangements comments: with sp Occupation/Education: 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 Spiritual care concerns: No Meds Home Medications and Allergies Home Medications ?Medication ?Instructions ?Recorded ?Confirmed ?Type escitalopram oxalate 20 mg tablet 30 mg PO DAILY 05/11/20 05/02/24 History multivitamin 1 tablet PO DAILY 01/29/22 05/02/24 History cholecalciferol (vitamin D3) 125 125 mcg PO DAILY 02/17/22 05/02/24 History mcg (5,000 unit) tablet (Vitamin D3) pantoprazole 40 mg tablet,delayed 40 mg PO QAM #30 tabs 03/20/24 05/02/24 Rx release cetirizine 10 mg tablet (24Hour 10 mg PO DAILY 05/02/24 05/02/24 History Allergy) collagen,hydrolysate 500 mg-biotin 1 cap PO DAILY 05/02/24 05/02/24 History 800 mcg-ascorbic acid 50 mg capsule (Collagen 1500 Plus C) Allergies Allergy/AdvReac Type Severity Reaction Status Date / Time cefdinir AdvReac Nausea Verified 05/19/24 10:37 Vital Signs Vital Signs - 24 hr 01/10/25 10:39 Temperature 97.1 F L Pulse Rate 71 Respiratory Rate 16 Blood Pressure 110/68 Pulse Oximetry 99 Oxygen Delivery Room Air Exam Const: General: cooperative and healthy appearing Resp: Effort & Inspection: normal respiratory effort and able to speak in complete sentences Auscultation: clear to auscultation bilaterally Cardio: Rate: regular rate Rhythm: regular rhythm GI: Inspection: normal to inspection GI Palp: No No hepatosplenomegaly present Auscultation: normal bowel sounds Rectal Exam: deferred Skin: General skin exam: normal color Psych: Appearance: grossly normal Mental Status: mental status grossly normal Assessment and Plan Assessment and plan (1) Epigastric pain: Code(s): R10.13 - Epigastric pain Status: Acute Assessment and Plan: The patient is deemed a good candidate for the procedure. Consent signed. Will proceed. (2) Nausea and vomiting: Qualifiers: Vomiting type: bilious vomiting Qualified Code(s): R11.14 - Bilious vomiting Code(s): R11.2 - Nausea with vomiting, unspecified Status: Acute
[2024-05-19 12:53] VITALS: BP 99/54; PULSE 64; RESP 22; O2SAT 99
[2024-05-19 13:03] VITALS: BP 119/96; PULSE 62; RESP 18; O2SAT 100
[2024-05-19 13:13] VITALS: BP 108/79; PULSE 63; RESP 15; O2SAT 100
== END 2024-05-19 13:25 | disposition home or self-care (01) ==
PROVIDERS: PCP Student in an Organized Health Care Education/Training Program; Referring Provider Nurse Practitioner Family; Visit Provider Internal Medicine Gastroenterology
PROC: 0DJ08ZZ Inspection of Upper Intestinal Tract, Via Natural or Artificial Opening Endoscopic (ICD-10-PCS; CPT 43239; principal; 2024-05-19 10:30)
DX: K21.9 Gastro-esophageal reflux disease without esophagitis (principal); F41.9 Anxiety disorder, unspecified; F32.A Depression, unspecified; Z98.890 Other specified postprocedural states; Z98.51 Tubal ligation status; Z87.891 Personal history of nicotine dependence
CPT/HCPCS: 43239; 88305; J2003; J2704; J7120

== ENCOUNTER 2024-06-30 09:05 | Outpatient (CLI) | payer OTHER, SELFPAY ==
--- NOTE | ~2024-06-30 | US_ITS ---
Limited Abdominal Sonogram: Real-time sonographic imaging of the right upper quadrant was performed. Clinical History: Epigastric pain Findings: The liver appears normal with no evidence of mass lesion or bile duct dilatation. Main por jaswant vein demonstrates normal direction of flow. The gallbladder is well distended, and appears normal with no evidence of gallstone or wall thickening. The common bile duct measures 2 mm. The visualize d pancreas, aorta, and IVC are unremarkable. Impression: No significant abnormality seen. Reviewed, dictated and finalized at location . 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
== END 2024-06-30 09:06 | disposition home or self-care (01) ==
LOC: GOSHIMG 09:05
PROVIDERS: PCP Internal Medicine Gastroenterology; Visit Provider Student in an Organized Health Care Education/Training Program
DX: R10.13 Epigastric pain (principal); R11.2 Nausea with vomiting, unspecified
CPT/HCPCS: 76705